=== PATIENT | female | born 1950 | race Caucasian/White ===

== ENCOUNTER 2022-07-31 16:36 | Outpatient (CLI) | payer OTHER, SELFPAY | END 2022-07-31 16:37 | disposition home or self-care (01) | PROVIDERS: PCP Physician Assistant; Visit Provider Family Medicine | DX: R07.89 Other chest pain (principal); R10.13 Epigastric pain | CPT/HCPCS: A0425; A0427 ==

== ENCOUNTER 2022-07-31 17:02 | Emergency (ER) | payer OTHER, SELFPAY ==
[2022-07-31 17:10] VITALS: BP 149/55; PULSE 72; RESP 18; TEMP 36.5; O2SAT 94; BMI 28.4
--- NOTE | 2022-07-31 17:12 | CRLHL7_ITS ---
For Patients: As a result of the Cures Act, medical imaging exams and procedure reports are released immediately into your electronic medical record. You may view this report before your referring provider. If you have questions, please contact your health care provider. INDICATION: Chest pain. TECHNIQUE: Chest 1 view. COMPARISON: None. FINDINGS: No focal consolidation, pleural effusion, or pneumothorax. Left basilar atelectasis. Normal heart size and pulmonary vascularity. Mild elevation of the right hemidiaphragm. Left convex thoracic curve. Degenerative changes of the spine. IMPRESSION: No acute cardiopulmonary findings. Dictated by Tatianna Zambrano MD @ 07/31/2022 6:15:06 PM (Electronically Signed)
--- NOTE | 2022-07-31 17:13 | ED.GENADULT ---
HPI - General Adult General Time Seen by Provider: 17:13 Date Seen: 07/31/22 Chief complaint: Chest Pain Stated complaint: CHEST PAIN Time Seen by Provider: 07/31/22 17:05 Source: patient Mode of arrival: EMS Limitations: no limitations History of Present Illness HPI narrative: The patient is a 72-year-old female who about a month ago had an acute [place] in [place]. She is put on Brilinta and she recovered nicely. She is scheduled to see a lead software test engineer about doing an angiogram on the of this month. She reports that today she was eating and swallowing something and had a vomit and felt like she choked a little bit then vomited several times and retched several times had some chest had some left lower abdominal left upper abdominal and left lower chest wall discomfort and then called an ambulance as she is concerned about her heart. Her symptoms have resolved now. No nausea, vomiting no diaphoresis, no neck or arm pain. Related Data Home Medications Medication Instructions Recorded Confirmed acetaminophen 500 mg tablet (Pain 1,000 mg PO Q6H PRN 07/31/22 07/31/22 Relief (acetaminophen)) clobetasol 0.05 % topical ointment 1 applic topical BID 07/31/22 07/31/22 insulin aspar prot-insulin aspart 39 unit subcut BID 07/31/22 07/31/22 100 unit/mL (70-30) subcutaneous pen (Novolog Mix 70-30FlexPen U-100) lisinopril 10 mg tablet 10 mg PO DAILY 07/31/22 07/31/22 metoprolol succinate 25 mg 25 mg PO DAILY 07/31/22 07/31/22 tablet,extended release 24 hr nitroglycerin 0.4 mg sublingual 0.4 mg sublingual Q5M PRN 07/31/22 07/31/22 tablet polyethylene glycol 3350 17 gram 17 g PO DAILY 07/31/22 07/31/22 oral powder packet (Miralax) rosuvastatin 20 mg tablet 10 mg PO DAILY 07/31/22 07/31/22 ticagrelor 90 mg tablet (Brilinta) 90 mg PO Q12H 07/31/22 07/31/22 Allergies Allergy/AdvReac Type Severity Reaction Status Date / Time Penicillins Allergy Verified 07/31/22 17:15 Review of Systems Status of ROS: Reports: 10 or more systems reviewed and unremarkable except as noted in History and below PFSH PFS Social History Smoking Status: Never smoker Do you use any of these nicotine containing products: None How often do you have a drink containing alcohol: monthly or less How many standard drinks containing alcohol do you have on a typical day: 1 or 2 How often do you have six or more drinks on one occasion: Never AUDIT-C Alcohol total score: 1 Non-prescribed substance use: denies use Exam Narrative: Exam Narrative: Objective: Patient is alert orient x3 Vital signs are being obtained HEENT is unremarkable facial asymmetry Neck is supple Chest is clear Heart rate and rhythm regular with occasional ectopic beat 2/6 systolic ejection murmur Abdominal exam shows some mild left upper abdominal tenderness, lower chest wall tenderness to palpation, no real crepitus. Extremities are no edema Neurologic nonfocal Skin is warm and dry Const: Vital Signs, click to edit/add: Vital Signs - 24 hr 07/31/22 17:10 07/31/22 19:00 07/31/22 18:30 Temperature 97.7 F Pulse Rate [Right Pulse Oximeter] 72 66 66 Respiratory Rate 18 16 16 Blood Pressure [Le ft Upper Arm] 149/55 H 143/55 H 144/81 H Pulse Oximetry 94 97 97 Oxygen Delivery Me thod Room Air Room Air Room Air 07/31/22 18:00 07/31/22 17:30 Temperature Pulse Rate [Right Pulse Oximeter] 66 66 Respiratory Rate 16 16 Blood Pressure [Le ft Upper Arm] 127/52 L 128/66 Pulse Oximetry 97 97 Oxygen Delivery Me thod Room Air Room Air Course Vital Signs Vital signs: Initial Vital Signs Temperature 97.7 F 07/31/22 17:10 Temperature Source Temporal Artery Scan 07/31/22 17:10 Pulse Rate 72 07/31/22 17:10 Respiratory Rate 18 07/31/22 17:10 Blood Pressure 149/55 H 07/31/22 17:10 Blood Pressure Mean 86 07/31/22 17:10 Blood Pressure Position Supine 07/31/22 17:10 Pulse Oximetry 94 07/31/22 17:10 Oxygen Delivery Method 07/31/22 17:10 Vital Signs Temperature 97.7 F 07/31/22 17:10 Pulse Rate 72 07/31/22 17:10 Respiratory Rate 18 07/31/22 17:10 Blood Pressure 149/55 H 07/31/22 17:10 Pulse Oximetry 94 07/31/22 17:10 Oxygen Delivery Method 07/31/22 17:10 Temperature 97.7 F 07/31/22 17:10 Pulse Rate 66 07/31/22 19:00 Respiratory Rate 16 07/31/22 19:00 Blood Pressure 143/55 H 07/31/22 19:00 Pulse Oximetry 97 07/31/22 19:00 Oxygen Delivery Method 07/31/22 19:00 Medical Decision Making MDM Narrative Medical decision making narrative: The patient had a cardiac event about a month ago, today had some swallowing difficulty, subsequent retching. Describes more upper abdominal pain on the left than chest pain I suspect that she may have more of a GI component to her process than cardiac, but I think doing cardiac monitoring, EKGs, serial troponin to be reasonable. Will get a chest x-ray, labs electrolytes. She has been given aspirin via ambulance. She is given a nitro as well, and she did have pain at house and then after retching felt better. She is fairly asymptomatic at this time. Addendum: Patient's 2nd EKG looks exactly like the 1st 1 with normal sinus rhythm some sinus arrhythmia no acute ST T changes, limited R-wave progression anteriorly. The patient's symptoms resolved completely. In discussing this further with her she felt that she was having some difficulty with eating and swallowed something to quickly that did not agree with her, and then she had some retching choking and feels better now. We are running a 2nd troponin initial 1 was normal. If the 2nd 1 is normal as well she will be discharged home, did continue her same medications, follow up with primary care in the next 2 days, follow up with Cardiology as planned. If she has problems or concerns any recurrence of symptoms or issues she should return to the ED. she was comfortable this plan Lab Data Labs: Lab Results 07/31/22 07/31/22 07/31/22 Range/Units 17:42 17:42 17:42 WBC 9.80 (4.50-11.00) K/uL RBC 4.44 (4.00-5.20) m/uL Hgb 11.7 L (12.0-16.0) gm/dL Hct 37.3 (33.0-51.0) % MCV 84 (80-100) fL MCH 26 (26-34) pg MCHC 31 L (32-36) gm/dL RDW Coeff of Jose Francisco 14.0 (11.5-15.5) % Plt Count 316 (140-440) K/uL Neut % (Auto) 66.6 (42.0-72.0) % Lymph % (Auto) 25.5 (20-44) % [place] % (Auto) 6.4 (0.0-11.0) % Eos % (Auto) 1.1 (0.0-7.0) % Baso % (Auto) 0.3 (0.0-3.0) % Neut # (Auto) 6.52 (1.7-7.0) K/uL Lymph # (Auto) 2.50 (0.90-2.90) K/uL [place] # (Auto) 0.60 (0.00-0.90) K/UL Eos # (Auto) 0.11 (0.00-0.50) K/uL Baso # (Auto) 0.03 (0.00-0.30) K/uL Abs Immat Gran (auto) 0.01 (0.00-0.30) K/uL INR 1.05 (0.91-1.10) Sodium 140 (135-149) mmol/L Potassium 4.6 (3.6-5.1) mmol/L Chloride 104 (96-114) mmol/L Carbon Dioxide 26 (20-32) mmol/L BUN 17 (7-30) mg/dL Creatinine 0.6 (0.5-1.5) mg/dL Estimated Creat Clear 50.54 Estimated GFR 95 ml/min Glucose 145 H (60-115) mg/dL Calcium 9.3 (8.4-10.6) mg/dL Total Bilirubin 0.4 (0.1-1.5) mg/dL Direct Bilirubin 0.2 (0.0-0.5) mg/dL AST 28 (12-35) U/L ALT 21 (4-35) U/L Alkaline Phosphatase 74 (40-150) U/L Troponin I (0.01-0.04) ng/mL C-Reactive Protein < 0.5 L (0.5-1.0) mg/dL NT-Pro-B Natriuret Pep 509 H (0-125) PG/mL Total Protein 7.4 (6.0-8.3) g/dL Albumin 4.3 (3.3-5.0) g/dL Amylase 105 H (18-89) U/L SARS-CoV-2 Ag (Rapid) (Negative) 07/31/22 07/31/22 Range/Units 17:42 18:00 WBC (4.50-11.00) K/uL RBC (4.00-5.20) m/uL Hgb (12.0-16.0) gm/dL Hct (33.0-51.0) % MCV (80-100) fL MCH (26-34) pg MCHC (32-36) gm/dL RDW Coeff of Jose Francisco (11.5-15.5) % Plt Count (140-440) K/uL Neut % (Auto) (42.0-72.0) % Lymph % (Auto) (20-44) % [place] % (Auto) (0.0-11.0) % Eos % (Auto) (0.0-7.0) % Baso % (Auto) (0.0-3.0) % Neut # (Auto) (1.7-7.0) K/uL Lymph # (Auto) (0.90-2.90) K/uL [place] # (Auto) (0.00-0.90) K/UL Eos # (Auto) (0.00-0.50) K/uL Baso # (Auto) (0.00-0.30) K/uL Abs Immat Gran (auto) (0.00-0.30) K/uL INR (0.91-1.10) Sodium (135-149) mmol/L Potassium (3.6-5.1) mmol/L Chloride (96-114) mmol/L Carbon Dioxide (20-32) mmol/L BUN (7-30) mg/dL Creatinine (0.5-1.5) mg/dL Estimated Creat Clear Estimated GFR ml/min Glucose (60-115) mg/dL Calcium (8.4-10.6) mg/dL Total Bilirubin (0.1-1.5) mg/dL Direct Bilirubin (0.0-0.5) mg/dL AST (12-35) U/L ALT (4-35) U/L Alkaline Phosphatase (40-150) U/L Troponin I < 0.01 L (0.01-0.04) ng/mL C-Reactive Protein (0.5-1.0) mg/dL NT-Pro-B Natriuret Pep (0-125) PG/mL Total Protein (6.0-8.3) g/dL Albumin (3.3-5.0) g/dL Amylase (18-89) U/L SARS-CoV-2 Ag (Rapid) Negative (Negative) Discharge Plan Discharge Clinical Impression: Retching Patient Disposition: Home, Self-Care Condition: Improved Additional Instructions: Continue home medications, update primary care in the next 2 days, cardiology follow-up as indicated, return if problems or concerns. Activity Level: Light activity Discharge Diet: Regular Prescriptions: No Action acetaminophen [Pain Relief (acetaminophen)] 500 mg tablet 1,000 mg PO Q6H PRN Label Comments: TAKE 1 TO 2 TABLETS BY MOUTH EVERY 6 HOURS NEEDED FOR PAIN . DO NOT EXCEED 4000 MG OF ACETAMINOPHEN PER 24 HOURS clobetasol 0.05 % ointment 1 applic TOPICAL BID Label Comments: APPLY OINTMENT TOPICALLY TO AFFECTED AREA TWICE DAILY insulin asp prt-insulin aspart [Novolog Mix 70-30FlexPen U-100] 100 unit/mL (70-30) insulin pen 39 unit SUBCUT BID Label Comments: INJECT 43 UNITS SUBCUTANEOUSLY TWICE DAILY BEFORE MEAL(S) lisinopril 10 mg tablet 10 mg PO DAILY Label Comments: TAKE 1 TABLET BY MOUTH ONCE DAILY metoprolol succinate 25 mg tablet extended release 24 hr 25 mg PO DAILY Label Comments: TAKE 1 TABLET BY MOUTH EVERY DAY nitroglycerin 0.4 mg tablet, sublingual 0.4 mg sublingual Q5M PRN Label Comments: ONE TABLET UNDER TONGUE NEEDED FOR CHEST PAIN EVERY 10 MINUTES. MAX DOSE OF 3 TABLETS polyethylene glycol 3350 [Miralax] 17 gram powder in packet 17 g PO DAILY Label Comments: TAKE 1 PACKET BY MOUTH ONCE DAILY. rosuvastatin 20 mg tablet 10 mg PO DAILY Brilinta 90 mg tablet 90 mg PO Q12H Label Comments: TAKE 1 TABLET BY MOUTH TWICE DAILY AT 8 AM AND 8 PM Stand Alone Forms: [facility] Info Instructions
[2022-07-31 17:30] VITALS: BP 128/66; PULSE 66; RESP 16; O2SAT 97
[2022-07-31 17:48] LABS: Basophils Absolute Auto 0.03 K/uL (0.00-0.30); Basophils Percent Auto 0.3 % (0.0-3.0); Eosinophils Absolute Auto 0.11 K/uL (0.00-0.50); Eosinophils Percent Auto 1.1 % (0.0-7.0); Hematocrit 37.3 % (33.0-51.0); Hemoglobin* 11.7 gm/dL (12.0-16.0); Immature Granulocytes Abs Auto 0.01 K/uL (0.00-0.30); Lymphocytes Percent Auto 25.5 % (20-44); Mean Corpuscular HGB Conc 31 gm/dL (32-36); Mean Corpuscular Hemoglobin 26 pg (26-34); Mean Corpuscular Volume 84 fL (80-100); Monocytes Percent Auto 6.4 % (0.0-11.0); Neutrophils Absolute Auto 6.52 K/uL (1.7-7.0); Neutrophils Percent Auto 66.6 % (42.0-72.0); Platelet Count* 316 K/uL (140-440); Red Blood Count 4.44 m/uL (4.00-5.20)
[2022-07-31 17:52] LABS: Slide Review Reflex No
[2022-07-31] MEDS: 0.9 % SODIUM CHLORIDE 500 ML 500 ML IV (17:55)
[2022-07-31] MEDS: PANTOPRAZOLE SODIUM 40 MG INJ IVP (17:57)
[2022-07-31 18:00] VITALS: BP 127/52; PULSE 66; RESP 16; O2SAT 97
[2022-07-31 18:05] LABS: Chloride* 104 mmol/L (96-114)
[2022-07-31 18:06] LABS: Albumin* 4.3 g/dL (3.3-5.0); Potassium* 4.6 mmol/L (3.6-5.1); Sodium* 140 mmol/L (135-149)
[2022-07-31 18:08] LABS: Amylase* 105 U/L (18-89)
[2022-07-31 18:09] LABS: Alkaline Phosphatase* 74 U/L (40-150); Aspartate Amino Transferase* 28 U/L (12-35); Bilirubin Direct* 0.2 mg/dL (0.0-0.5); Bilirubin Total* 0.4 mg/dL (0.1-1.5); Blood Urea Nitrogen* 17 mg/dL (7-30); Carbon Dioxide* 26 mmol/L (20-32); Creatinine* 0.6 mg/dL (0.5-1.5); Est. Creatinine Clearance* 50.54; Estimated Glomerular Filt Rate 95 ml/min; Total Protein* 7.4 g/dL (6.0-8.3)
[2022-07-31 18:10] LABS: Alanine Aminotransferase* 21 U/L (4-35); Calcium* 9.3 mg/dL (8.4-10.6); Glucose* 145 mg/dL (60-115)
[2022-07-31 18:15] LABS: C Reactive Protein* < 0.5 mg/dL (0.5-1.0)
[2022-07-31 18:17] LABS: NT Pro B Type NatriureticPept* 509 PG/mL (0-125)
[2022-07-31 18:21] LABS: INR 1.05 (0.91-1.10); Prothrombin Time 14.2 Seconds
[2022-07-31 18:22] LABS: Troponin I* < 0.01 ng/mL (0.01-0.04)
[2022-07-31 18:30] VITALS: BP 144/81; PULSE 66; RESP 16; O2SAT 97
[2022-07-31 18:48] LABS: SARS Antigen* Negative (Negative)
[2022-07-31 19:00] VITALS: BP 143/55; PULSE 66; RESP 16; O2SAT 97
[2022-07-31 19:45] LABS: Troponin I* < 0.01 ng/mL (0.01-0.04)
== END 2022-07-31 20:26 | disposition home or self-care (01) ==
PROVIDERS: Emergency Provider Family Medicine; PCP Physician Assistant
DX: R11.10 Vomiting, unspecified (principal)
CPT/HCPCS: 36415; 71045; 80048; 80076; 82150; 83880; 84484; 85025; 85610; 86140; 87426; 87635; 93005; 96374; 99284; 99285; C9113; J7120

== ENCOUNTER 2024-06-25 20:03 | Outpatient (CLI) | payer OTHER, SELFPAY | END 2024-06-25 20:04 | disposition home or self-care (01) | PROVIDERS: PCP Physician Assistant; Visit Provider Physician Assistant | DX: G47.33 Obstructive sleep apnea (adult) (pediatric) (principal); G47.10 Hypersomnia, unspecified | CPT/HCPCS: 95810 ==

== ENCOUNTER 2024-11-13 14:25 | Outpatient (CLI) | payer OTHER, SELFPAY | END 2024-11-13 14:26 | disposition home or self-care (01) | LOC: INJ CL 14:27 | PROVIDERS: PCP Physician Assistant; Visit Provider Family Medicine | DX: M51.26 Other intervertebral disc displacement, lumbar region (principal); M51.369 Other intervertebral disc degeneration, lumbar region without mention of lumbar back pain or lower extremity pain | CPT/HCPCS: 62323; J0702; Q9966 ==

== ENCOUNTER 2025-03-05 09:02 | Outpatient (CLI) | payer OTHER, SELFPAY | END 2025-03-05 09:03 | disposition home or self-care (01) | LOC: INJ CL 09:03 | PROVIDERS: PCP Physician Assistant; Visit Provider Family Medicine | DX: M54.16 Radiculopathy, lumbar region (principal); M48.061 Spinal stenosis, lumbar region without neurogenic claudication; M51.26 Other intervertebral disc displacement, lumbar region; M47.816 Spondylosis without myelopathy or radiculopathy, lumbar region | CPT/HCPCS: 62323; J0702; Q9966 ==

== ENCOUNTER 2025-06-18 08:46 | Day surgery (SDC) | payer OTHER, SELFPAY ==
[2025-06-18] VITALS (34 sets, daily range): BP systolic 88–164; BP diastolic 47–94; PULSE 46–91; RESP 10–20; TEMP 35.5–36.9; O2SAT 2–98; BMI 28.3
[2025-06-18] MEDS: CELECOXIB 200 MG CAPSULE PO (08:56)
[2025-06-18] MEDS: OXYCODONE (CR) 10 MG TAB.ER.12H PO (08:56)
[2025-06-18] MEDS: SODIUM CHLORIDE 0.9 % (FLUSH) 10 ML SYRINGE IVF (09:45)
[2025-06-18] MEDS: LACTATED RINGERS 1000 ML 1,000 ML 100 ML IV ×3 (09:45→15:43)
[2025-06-18] MEDS: MIDAZOLAM HCL 1 MG/ML inj IVP (10:45)
--- NOTE | 2025-06-18 10:54 | SUR.PREOP ---
TIME?OUT:?1045 PT/RN/MDA?VERIFICATION?OF?SURGICAL?SITE,?PROCEDURE,?AND?CONSENT OBTAINED?PRIOR?TO?INVASIVE?PROCEDURE.
--- NOTE | 2025-06-18 10:59 | P.ANES_ITS ---
Anesthesia Charges Start Date/Time Anesthesia Start Date: 06/18/25 Anesthesia Start Time: 12:05 Stop Date/Time Anesthesia Stop Date: 06/18/25 Anesthesia Stop Time: 15:04 Summary Extremes of Age - Over 70 or under 1: MDA Coding CPT Codes CPT Codes: ANESTH HIP ARTHROPLASTY - 23826 ([id number]) P3 - PATIENT W/SEVERE SYS DISEASE, QK - SOLVENT PROCESS EXTRACTOR OPERATOR 2-4 CNCRNT ANES PROC, QX - MEDICAL RESEARCH SCIENTIST SVC W/ MD MED DIRECTION Additional Codes: Summary - Extremes of Age - Over 70 or under 1: MDA ([id number])
--- NOTE | 2025-06-18 10:59 | P.NB_ITS ---
Nerve Block Nerve Block Time Seen by Provider: 10:45 Date Seen: 06/18/25 Type of block requested by surgeon for post-operative analgesia: MADELINE/LFCN Side: right Time out performed: Yes Verification of patient name: Yes Verification of date of : Yes Site marking: site marked Name of person performing procedure: Ubaldo Continuous monitoring Was continuous monitoring of O2 sat, B/P, quality assurance monitor body, recorded every 15 minutes?: Yes Procedure Checklist: sterile prep, needles and gloves Ultrasound guided. Images saved: Yes Medications given in 5ml increments after negative aspiration: Ropivicaine %: 0.5 mL: 30 Needle gauge: 20 Precedex (mcg): 25 Patient tolerated procedure well: Yes Additional comments: Needle noted below psoas tendon needle noted adjacent to LFCN Block Charges Block Charge (with Pro Fee): Other Periph Nerve Block Use of Ultrasound Machine for Block: Yes- US Guidance/pain block
--- NOTE | 2025-06-18 10:59 | W.ANESCHARGE ---
Anesthesia Charges Start Date/Time Anesthesia Start Date: 06/18/25 Anesthesia Start Time: 12:05 Stop Date/Time Anesthesia Stop Date: 06/18/25 Anesthesia Stop Time: 15:04 Summary Extremes of Age - Over 70 or under 1: MDA Coding CPT Codes CPT Codes: ANESTH HIP ARTHROPLASTY - 85542 ([id number]) P3 - PATIENT W/SEVERE SYS DISEASE, QK - VETERANS REHABILITATION COUNSELOR 2-4 CNCRNT ANES PROC, QX - OVEN TECHNICIAN SVC W/ MD MED DIRECTION Additional Codes: Summary - Extremes of Age - Over 70 or under 1: MDA ([id number])
--- NOTE | 2025-06-18 11:00 | CRLHL7_ITS ---
For Patients: As a result of the Cures Act, medical imaging exams and procedure reports are released immediately into your electronic medical record. You may view this report before your referring provider. If you have questions, please contact your health care provider. Indication: Right total hip arthroplasty. Technique: Two fluoroscopic views of the right hip. Comparison: None. Findings/Impression : Postsurgical changes of right total hip arthroplasty without evidence of hardware loosening or other intraoperative complication. Dictated by Sudarshan Sebastian MD @ 06/20/2025 7:18:47 PM (Electronically Signed)
[2025-06-18] MEDS: TRANEXAMIC ACID 100 MG/ML INJ 1000 MG IV (12:19)
--- NOTE | 2025-06-18 14:15 | CRLHL7_ITS ---
For Patients: As a result of the Cures Act, medical imaging exams and procedure reports are released immediately into your electronic medical record. You may view this report before your referring provider. If you have questions, please contact your health care provider. Indication: Follow-up total hip arthroplasty. Technique: Multiple radiographic views of the pelvis and right hip. Comparison: None. Findings: Postsurgical changes of right total hip arthroplasty without evidence of hardware loosening or other complication. No other acute osseous abnormalities elsewhere. Left hip arthrosis. Impression: 1. Status post right total hip arthroplasty without complication. Dictated by Sudarshan Sebastian MD @ 06/20/2025 7:20:53 PM (Electronically Signed)
--- NOTE | 2025-06-18 14:33 | P.ORPRC_ITS ---
Procedure Note Date of procedure: 06/18/25 Procedure: PREOPERATIVE DIAGNOSIS: Right hip osteoarthritis POSTOPERATIVE DIAGNOSIS: Right hip osteoarthritis NAME OF OPERATION: Right total hip arthroplasty SURGEON: Manjit Turner MD RAILROAD CROSSING PROTECTION MAINTAINER: Lisa Miller PA-C, JD Brantley IMPLANTS: 1. [employer] Wesley # 52 sector ingrowth cup 2. 36 x 52 +4 neutral polyethylene 3. Actis # 7 standard collared ingrowth stem 4. 36 + 5 ceramic femoral head ANESTHESIA: General ESTIMATED BLOOD LOSS: 350 cc COMPLICATIONS: None SPECIMENS: None DRAINS: None PREOPERATIVE ANTIBIOTICS: Ancef 2 grams INDICATIONS: The patient is a 75-year-old with a longstanding history of se lisbet, unrelenting right hip pain secondary to end-stage right hip osteoarthritis. Despite appropriate nonoperative management, including activity modification, use of an assist device, anti-inflammatories, [id number] pain medication, physical therapy and injections, they continue to have pain and disability. Operative intervention was offered. The risks, benefits and expected outcomes were discussed in detail. These included but were not limited to: Infection, bleeding, injury to blood vessel or nerve, venous thromboembolism. All questions were answered to their satisfaction. Use of an intellectual property legal assistant was necessary throughout the case for patient positioning and safety, soft tissue retraction and closure. PROCEDURE: The patient was placed supine on the Nelson table. General anesthesia was administered. The intellectual property legal assistant made sure the patient was properly positioned. The right hip was prepped and draped in the usual sterile fashion. The image intensifier was brought in for a perfect AP pelvis and a perfect double tear drop AP view of each hip which were used for intraoperative templating with our fluoroscopic guide. A bikini incision was made just distal to the hip flexion crease. The intellectual property legal assistant retracted the soft tissues to protect them. Subcutaneous dissection was taken with electrocautery to the superficial fascia. The fascia was divided in line with the incision. Blunt dissection was carried medially to the tensor fascia alana and sartorius interval. Deep dissection was carried with electrocautery. The circumflex vessels were cauterized and divided. The capsule was exposed and then divided in a T-fashion, tagged with #1 FiberWire sutures. Retractors were placed in the joint, held by the intellectual property legal assistant. The corkscrew was placed in the femoral head. The neck cut was made in the subcapital region. We made a second neck cut more distal. The napkin ring of bone was removed. The femoral head was removed intact. Acetabular retractors were placed, held by the intellectual property legal assistant. The labrum was sharply debrided. The capsule was released. The 43 mm reamer was used to the true medial wall. We then enlarged in 2 mm increments using the image intensifier for our reamer placement. We impacted the cup which had excellent purchase. We placed the polyethylene. Attention was then turned to the proximal femur. The limb was placed in 140 degrees of external rotation, maximum extension and adduction. A significant amount of time was spent releasing the capsule to allow us to deliver the femur into the wound and complete the femoral side safely. Retractors were held by the intellectual property legal assistant throughout the femoral preparation. The crap game box person and canal finder were used. Broaches were used to a stable size. The calcar reamer was used. Trial components were placed. The hip was reduced and was found to be stable with appropriate soft tissue tension. Length and offset had been nicely restored using the image intensifier and our fluoroscopic guide. Trial components were removed. The stem was impacted. We placed the femoral head. Again, the hip was reduced and was found to be stable with appropriate soft tissue tension. Length and offset had been nicely restored. The intellectual property legal assistant did a three minute dilute Betadine solution soak. The intellectual property legal assistant irrigated the wound with 3 liters of normal saline via pulse lavage. The intellectual property legal assistant repaired the anterior capsule with a #1 Vicryl and our previously placed Ethibond sutures. The intellectual property legal assistant closed the fascia over the tensor fascia alana with a #1 PDO Stratafix, subcutaneous tissues with 2-0 Vicryl, skin with a running 3-0 Stratafix and glue. A dry dressing was applied by the intellectual property legal assistant. Sponge and needle counts were correct x 2. The patient tolerated the procedure well; there were no apparent complications. They were awakened and extubated in the operating room, sent to the Post-Anesthesia Care Unit in satisfactory condition. PLAN: 1. The patient will be mobilized with physical therapy, weight-bearing as tolerates 2. Xarelto x 5 days then aspirin x 30 days will be used for DVT prophylaxis 3. The patient will be discharged once medically appropriate
--- NOTE | 2025-06-18 15:17 | P.ANES_ITS ---
Anesthesia Charges Start Date/Time Anesthesia Start Date: 06/18/25 Anesthesia Start Time: 12:05 Stop Date/Time Anesthesia Stop Date: 06/18/25 Anesthesia Stop Time: 15:04 Coding CPT Codes CPT Codes: ANESTH HIP ARTHROPLASTY - 70455 ([id number]) P3 - PATIENT W/SEVERE SYS DISEASE, QK - SOCK KNITTER 2-4 CNCRNT ANES PROC, QX - PLC TECHNICIAN SVC W/ MD MED DIRECTION
--- NOTE | 2025-06-18 15:17 | W.ANESCHARGE ---
Anesthesia Charges Start Date/Time Anesthesia Start Date: 06/18/25 Anesthesia Start Time: 12:05 Stop Date/Time Anesthesia Stop Date: 06/18/25 Anesthesia Stop Time: 15:04 Coding CPT Codes CPT Codes: ANESTH HIP ARTHROPLASTY - 80060 ([id number]) P3 - PATIENT W/SEVERE SYS DISEASE, QK - RADIOLOGICAL HEALTH SPECIALIST 2-4 CNCRNT ANES PROC, QX - STRATEGIC ACCOUNTS MANAGER SVC W/ MD MED DIRECTION
--- NOTE | 2025-06-18 15:44 | PM.IMCN1 ---
Date of Consult Consult date: 06/18/25 Primary Care Provider: Usha Benedict PA-C Consult Narrative Narrative: Ana Mazariegos is a 75 year old female with past medical history of hypertension, hyperlipidemia, CAD, diabetes who presents for an elective right hip arthroplasty. Patient has history of a heart attack back in June 2022 and she got a stent at that time. She is currently on aspirin daily, I am going to resume aspirin today and she can take it along with Xarelto because she will need her antiplatelet medication to avoid clotting of her stent. On insulin NovoLog Mix 70-30, 22 units b.i.d. plus metformin 2000 mg daily. Review of Systems Status of ROS: Reports: 6 or more systems reviewed and unremarkable except as noted in History and below [facility] Medical History (Updated 06/18/25 @ 18:34 by Ana Wasserman MD) CAD involving [place] coronary artery without angina pectoris ?I25.10 - Atherosclerotic heart disease of [place] coronary artery without angina pectoris (ICD-10) Cervical stenosis of spinal canal ?M48.02 - Spinal stenosis, cervical region (ICD-10) NSTEMI (non-ST elevated myocardial infarction) ?I21.4 - Non-ST elevation (NSTEMI) myocardial infarction (ICD-10) DDD (degenerative disc disease) HTN (hypertension) ?I10 - Essential (primary) hypertension (ICD-10) Myalgia and myositis (10/24/06) Anesthesia complication ?T88.59XA - Other complications of anesthesia, initial encounter (ICD-10) Diabetes (11/28/03) ?E11.9 - Type 2 diabetes mellitus without complications (ICD-10) Hyperlipidemia (10/24/06) ?E78.5 - Hyperlipidemia, unspecified (ICD-10) 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5 - Presence of coronary angioplasty implant and graft (ICD-10) Social History What is your current living situation?: I presently have a place to live Problems where you live: pests, such as bugs, ants, or mice and no known problems Problems where you live details: ants and spiders In the past 12 months, utilities in danger of being shut off: no In past 12 months, lack of transportation kept you from medical appts, meetings, work, or getting things needed for daily living: no In the past 12 mos, have been you worried that your food would run out before you had money to buy more?: never true In the past 12 mos, the food you bought just didn't last and you didn't have money to buy more?: never true Highest level of school completed/degree received: Associate degree: occupational, technical, vocational program Smoking Status: Never smoker Do you use any of these nicotine containing products: None Second hand tobacco smoke exposure: No How often do you have a drink containing alcohol: monthly or less Alcohol type: wine How many standard drinks containing alcohol do you have on a typical day: 1 or 2 How often do you have six or more drinks on one occasion: Never AUDIT-C Alcohol total score: 1 Non-prescribed substance use: denies use Caffeine: Yes How often does anyone, including family, friends and others, physically hurt you: never How often does anyone, including family, friends and others, insult or talk down to you: never How often does anyone, including family, friends and others, threaten you with harm: never How often does anyone, including family, friends and others, scream or curse at you: never service: No Health Related Social Needs: Inadequate housing (Z59.1) Meds Home Medications and Allergies Home Medications ?Medication ?Instructions ?Recorded ?Confirmed ?Type clobetasol 0.05 % topical ointment 1 applic topical BID PRN 07/31/22 06/18/25 History lisinopril 10 mg tablet 10 mg PO DAILY 07/31/22 06/18/25 History metoprolol succinate 25 mg 25 mg PO DAILY 07/31/22 06/18/25 History tablet,extended release 24 hr nitroglycerin 0.4 mg sublingual 0.4 mg sublingual Q5M PRN 07/31/22 06/18/25 History tablet polyethylene glycol 3350 17 gram 17 g PO DAILY 07/31/22 06/18/25 History oral powder packet (Miralax) metronidazole 0.75 % topical gel 1 applic topical BID PRN 10/06/23 06/18/25 History aspirin 81 mg tablet 81 mg PO DAILY 04/29/25 06/18/25 History Held on 06/18/25. Instructions: Resume on 07/24/25. pregabalin 75 mg capsule 75 mg PO BID 04/29/25 06/18/25 History ferrous sulfate 325 mg (65 mg 325 mg PO DAILY 06/10/25 06/18/25 History iron) tablet hydrocodone 5 mg-acetaminophen 325 0.5 - 1 tab PO BID PRN 06/10/25 06/18/25 History mg tablet insulin aspar prot-insulin aspart 22 unit subcut BID 06/10/25 06/18/25 History 100 unit/mL (70-30) subcutaneous pen (Novolog Mix 70-30FlexPen U-100) magnesium oxide 500 mg PO DAILY 06/10/25 06/18/25 History metformin 500 mg tablet,extended 2,000 mg PO QPM 06/10/25 06/18/25 History release 24 hr methocarbamol 500 mg tablet 500 mg PO Q6H PRN 06/10/25 06/18/25 History naproxen sodium 220 mg capsule 220 mg PO Q8H PRN 06/10/25 06/18/25 History (Aleve) Held on 06/18/25. Instructions: Resume on 06/24/25. rosuvastatin 20 mg tablet 20 mg PO HS 06/10/25 06/18/25 History acetaminophen 650 mg 650 mg PO Q8H PRN 06/18/25 06/18/25 History tablet,extended release cyanocobalamin (vitamin B-12) 1,000 mcg PO DAILY 06/18/25 06/18/25 History 1,000 mcg tablet Allergies Allergy/AdvReac Type Severity Reaction Status Date / Time Penicillins Allergy Verified 06/18/25 09:50 cephalexin (From Keflex) AdvReac Unknown Verified 06/18/25 09:50 clindamycin AdvReac Unknown Verified 06/18/25 09:50 tizanidine AdvReac Unknown Verified 06/18/25 09:50 Exam Narrative: Exam Narrative: Physical exam GENERAL: Comfortable, no acute distress. HEAD AND NECK: Atraumatic, normocephalic CARDIOVASCULAR: RRR. Normal S1, S2. No murmurs. RESPIRATORY: Clear to auscultation B/L. Good air entry B/L. No wheezes or rhonchi. NEUROLOGY: Alert, awake, oriented X 3. Normal speech. PSYCH: Normal mood, normal affect. Const: Vital Signs, click to edit/add: Vital Signs - 24 hr 06/18/25 09:45 06/18/25 10:45 06/18/25 10:50 Temperature 98.4 F Pulse Rate 79 75 71 Respiratory Rate 16 16 16 Blood Pressure 150/59 H 160/68 H 139/72 Pulse Oximetry 97 96 94 Oxygen Delivery Me thod Room Air Nasal Cannula Nasal Cannula Oxygen Flow Rate 2 2 06/18/25 11:00 06/18/25 14:59 06/18/25 15:05 Temperature 97.5 F L Pulse Rate 56 L 91 86 Respiratory Rate 16 18 16 Blood Pressure 121/50 L 164/63 H 142/63 H Pulse Oximetry 96 2 L 93 Oxygen Delivery Me thod Nasal Cannula Room Air Oxygen Flow Rate 2 06/18/25 15:10 06/18/25 15:15 06/18/25 15:20 Temperature Pulse Rate 68 64 63 Respiratory Rate 16 16 16 Blood Pressure 129/73 108/50 L 115/50 L Pulse Oximetry 91 93 96 Oxygen Delivery Me thod Oxygen Flow Rate 06/18/25 15:25 06/18/25 15:30 06/18/25 15:35 Temperature Pulse Rate 62 58 L 55 L Respiratory Rate 16 16 16 Blood Pressure 88/47 L 96/63 110/94 H Pulse Oximetry 97 96 97 Oxygen Delivery Me thod Oxygen Flow Rate Assessment and Plan Assessment and plan (1) Status post right hip replacement: Problem comment: Performed on June 18, 2025 Status: Acute (2) NSTEMI (non-ST elevated myocardial infarction): Problem comment: Patient has history of a heart attack back in June 2022 and she got a stent at that time. She is currently on aspirin daily, I am going to resume aspirin today and she can take it along with Xarelto because she will need her antiplatelet medication to avoid clotting of her stent. Status: Acute (3) CAD involving [place] coronary artery without angina pectoris: Problem comment: History of non-STEMI Patient is on aspirin beta-alexander and a statin Patient has history of a heart attack back in June 2022 and she got a stent at that time. She is currently on aspirin daily, I am going to resume aspirin today and she can take it along with Xarelto because she will need her antiplatelet medication to avoid clotting of her stent. Status: Acute (4) Diabetes: Problem comment: On insulin NovoLog Mix 70-30, 22 units b.i.d. plus metformin 2000 mg daily at home. Will give patient 10-20 units of Lantus BID during her hospital stay. Start insulin sliding scale protocol. Status: Acute (5) HTN (hypertension): Status: Acute (6) Greater trochanteric bursitis of left hip: Status: Acute (7) Hyperlipidemia: Status: Acute (8) Osteoarthritis of right hip: Status: Acute
[2025-06-18] MEDS: CEFAZOLIN 2 GM in 0.9 % SODIUM CHLORIDE Mini-bag 100 ML IVPB (18:29)
[2025-06-18] MEDS: ASPIRIN 81 MG TABLET EC PO (18:51)
[2025-06-18] MEDS: SENNOSIDES 1 TAB TABLET 2 TAB PO (21:38)
[2025-06-18] MEDS: ROSUVASTATIN CALCIUM 10 MG TABLET 20 MG PO (21:38)
[2025-06-18] MEDS: ACETAMINOPHEN 500 MG TABLET 1000 MG PO (23:07)
[2025-06-18] MEDS: PREGABALIN 75 MG CAPSULE PO (23:09)
[2025-06-19 01:49] VITALS: BP 171/65; PULSE 65; RESP 18; TEMP 36.5; O2SAT 99
[2025-06-19] MEDS: CEFAZOLIN 2 GM in 0.9 % SODIUM CHLORIDE Mini-bag 100 ML IVPB (03:23)
[2025-06-19] MEDS: ACETAMINOPHEN 500 MG TABLET 1000 MG PO ×2 (05:21→10:02)
[2025-06-19 06:20] LABS: Hematocrit 31.8 % (33.0-51.0); Hemoglobin* 10.1 gm/dL (12.0-16.0); Mean Corpuscular HGB Conc 32 gm/dL (32-36); Mean Corpuscular Hemoglobin 26 pg (26-34); Mean Corpuscular Volume 83 fL (80-100); Red Blood Count 3.82 m/uL (4.00-5.20); White Blood Count* 12.14 K/uL (4.50-11.00)
[2025-06-19 06:22] LABS: Slide Review Reflex No
[2025-06-19 06:31] LABS: Chloride* 102 mmol/L (96-114); Sodium* 134 mmol/L (135-149)
[2025-06-19 06:32] LABS: Potassium* 4.0 mmol/L (3.6-5.1)
[2025-06-19 06:34] LABS: Blood Urea Nitrogen* 18 mg/dL (7-30); Creatinine* 0.6 mg/dL (0.5-1.5); Est. Creatinine Clearance* 46.54; Estimated Glomerular Filt Rate 93 ml/min
[2025-06-19 06:35] LABS: Anion Gap 7 mEq/L (7-15); Calcium* 9.2 mg/dL (8.4-10.6); Carbon Dioxide* 25 mmol/L (20-32); Glucose* 202 mg/dL (60-115)
[2025-06-19 07:00] VITALS: BP 133/55; PULSE 81; RESP 16; TEMP 36.7; O2SAT 96
--- NOTE | 2025-06-19 07:02 | PC.NURSE ---
[id number]: Patient with high anxiety at beginning of shift. Anxiety resolved with breathing techniques and reassurance. Dressing to R. hip C/D/I. A1/walker/GB. Tolerates well. Pain managed with active ice, Tylenol, and PRN Oxycodone. Home alone. Denies N/V. Tolerates regular diet.
--- NOTE | 2025-06-19 08:38 | PM.ORPN ---
Subjective Subjective Time Seen by Provider: 07:05 Date Seen: 06/19/25 Principal diagnosis: Status post right hip replacement. Interval history: Ana is comfortable. She will discharge to home today. Ortho Exam Narrative Exam Narrative: Alert and oriented x3. Patient is in no acute distress. Converses without labored breathing. Hearing is grossly intact. Ambulates with a walker. Examination of the right hip shows ecchymosis inferior to the dressing. Dressing is intact. No erythema or warmth or sign of infection. Mild edema. She is easily able to flex her hip in bed. She is easily able to swing her leg over the side of the bed. She appears strong. Bilateral calves are soft and nontender. No pretibial edema. CMS intact right lower extremity. Const Vital Signs, click to edit/add: Vital Signs - 24 hr 06/18/25 09:45 06/18/25 10:45 06/18/25 10:50 Temperature 98.4 F Pulse Rate 79 75 71 Pulse Rate [Right Pulse Oximeter] Respiratory Rate 16 16 16 Blood Pressure 150/59 H 160/68 H 139/72 Blood Pressure [Left Arm] Pulse Oximetry 97 96 94 Oxygen Delivery Method Room Air Nasal Cannula Nasal Cannula Oxygen Flow Rate 2 2 06/18/25 11:00 06/18/25 14:59 06/18/25 15:05 Temperature 97.5 F L Pulse Rate 56 L 91 86 Pulse Rate [Right Pulse Oximeter] Respiratory Rate 16 18 16 Blood Pressure 121/50 L 164/63 H 142/63 H Blood Pressure [Left Arm] Pulse Oximetry 96 2 L 93 Oxygen Delivery Method Nasal Cannula Room Air Oxygen Flow Rate 2 06/18/25 15:10 06/18/25 15:15 06/18/25 15:20 Temperature Pulse Rate 68 64 63 Pulse Rate [Right Pulse Oximeter] Respiratory Rate 16 16 16 Blood Pressure 129/73 108/50 L 115/50 L Blood Pressure [Left Arm] Pulse Oximetry 91 93 96 Oxygen Delivery Method Oxygen Flow Rate 06/18/25 15:25 06/18/25 15:30 06/18/25 15:35 Temperature Pulse Rate 62 58 L 55 L Pulse Rate [Right Pulse Oximeter] Respiratory Rate 16 16 16 Blood Pressure 88/47 L 96/63 110/94 H Blood Pressure [Left Arm] Pulse Oximetry 97 96 97 Oxygen Delivery Method Oxygen Flow Rate 06/18/25 15:40 06/18/25 15:45 06/18/25 15:50 Temperature Pulse Rate 57 L 55 L 51 L Pulse Rate [Right Pulse Oximeter] Respiratory Rate 16 18 16 Blood Pressure 122/51 L 126/55 L 134/54 L Blood Pressure [Left Arm] Pulse Oximetry 98 98 96 Oxygen Delivery Method Oxygen Flow Rate 06/18/25 15:55 06/18/25 16:00 06/18/25 16:05 Temperature 98.4 F Pulse Rate 46 L 51 L 52 L Pulse Rate [Right Pulse Oximeter] Respiratory Rate 16 16 16 Blood Pressure 130/52 L Blood Pressure [Left Arm] Pulse Oximetry 97 97 96 Oxygen Delivery Method Room Air Oxygen Flow Rate 06/18/25 16:10 06/18/25 16:15 06/18/25 16:20 Temperature Pulse Rate 51 L 51 L 51 L Pulse Rate [Right Pulse Oximeter] Respiratory Rate 16 17 16 Blood Pressure Blood Pressure [Left Arm] Pulse Oximetry 97 96 95 Oxygen Delivery Method Oxygen Flow Rate 06/18/25 16:25 06/18/25 16:30 06/18/25 16:45 Temperature 96 F L 97 F L Pulse Rate 48 L Pulse Rate [Right Pulse Oximeter] 52 L 47 L Respiratory Rate 18 10 L 12 Blood Pressure Blood Pressure [Left Arm] 136/62 150/62 H Pulse Oximetry 95 96 91 Oxygen Delivery Method Room Air Room Air Oxygen Flow Rate 06/18/25 17:00 06/18/25 17:15 06/18/25 17:30 Temperature 97.2 F L 96.7 F L Pulse Rate Pulse Rate [Right Pulse Oximeter] 61 53 L 49 L Respiratory Rate 14 14 12 Blood Pressure Blood Pressure [Left Arm] 138/59 L 139/57 L 140/60 H Pulse Oximetry 92 96 96 Oxygen Delivery Method Nasal Cannula Nasal Cannula Nasal Cannula Oxygen Flow Rate 1 1 1 06/18/25 18:00 06/18/25 18:30 06/18/25 19:30 Temperature 96.1 F L 97.4 F L Pulse Rate Pulse Rate [Right Pulse Oximeter] 51 L 57 L 60 Respiratory Rate 12 12 16 Blood Pressure Blood Pressure [Left Arm] 142/65 H 157/71 H 153/64 H Pulse Oximetry 96 95 93 Oxygen Delivery Method Nasal Cannula Room Air Room Air Oxygen Flow Rate 1 06/18/25 20:30 06/18/25 21:30 06/18/25 22:30 Temperature 96.1 F L 97.5 F L Pulse Rate Pulse Rate [Right Pulse Oximeter] 63 72 62 Respiratory Rate 16 20 18 Blood Pressure Blood Pressure [Left Arm] 145/65 H 113/68 145/55 H Pulse Oximetry 98 95 98 Oxygen Delivery Method Room Air Room Air Room Air Oxygen Flow Rate 06/18/25 23:00 06/19/25 01:49 Temperature 97.7 F Pulse Rate Pulse Rate [Right Pulse Oximeter] 65 Respiratory Rate 16 18 Blood Pressure Blood Pressure [Left Arm] 171/65 H Pulse Oximetry 95 99 Oxygen Delivery Method Room Air Room Air Oxygen Flow Rate 0 Assessment and Plan Assessment and plan (1) Status post right hip replacement: Problem details: Performed on June 18, 2025 Status: Acute Assessment and Plan: Plan for discharge is today, and when they meets discharge criteria. DVT prophylaxis upon discharge includes Xarelto 10mg daily for a total of 5 days with aspirin 81 mg q.day for 5 days, then Aspirin 81mg twice daily for 30 days, then her usual dose of aspirin 81 mg daily thereafter. Remove dressing 1 week. Observe wound and phone Orthopedics with any questions or concerns Use Ice on operative hip unrestricted. Return to clinic in 7-10 days for a wound check Return to clinic in 6 weeks with surgeon Minimize narcotic use. Wean off and discontinue soon as possible. Activities as tolerated. No strenuous activity. Attend outpt PT She states she does not have hydrocodone/acetaminophen at home. She has in taking oxycodone in hospital. Oxycodone has been sent to her pharmacy. Xarelto quantity 4 tablets has been sent to her pharmacy. She has senna and MiraLax.
[2025-06-19] MEDS: INSULIN ASPART 100 UNIT/ML SUBCUT (08:41)
[2025-06-19] MEDS: ASPIRIN 81 MG TABLET EC PO (10:03)
[2025-06-19] MEDS: METOPROLOL SUCCINATE (XL) 25 MG TAB PO (10:03)
[2025-06-19] MEDS: SENNOSIDES 1 TAB TABLET 2 TAB PO (10:03)
[2025-06-19] MEDS: RIVAROXABAN 10 MG TABLET PO (10:04)
[2025-06-19] MEDS: PREGABALIN 75 MG CAPSULE PO (10:10)
--- NOTE | 2025-06-19 12:00 | PC.SOCIAL ---
Discharge planning: harvest worker fruit met with pt and her friend today before discharge. Pt feels comfortable discharging home today. Pt's neighbor plans to check on her daily. Pt's daughter, who lives in [place], will also be coming this weekend to check on her. Pt has a two story townhouse that she lives in and will be staying on the first level, which also has a half bathroom, until she feels confident doing the stairs. Pt has outpatient PT scheduled to start on 06/27/25 and will do her home exercises in the meantime. Pt is aware of how to get a hold of the social services specialist department if she has any questions and/or concerns. Social work to follow-up as needed.
--- NOTE | 2025-06-19 15:02 | PC.NURSE ---
Arrived to find the patient alert and oriented and vitally stable. Their right hip had their surgical dressing in place clean dry and intact. The skin underneath and surrounding appeared reddened and swollen. A cold pack was then applied and the patient educated on the use of cold to bring down swelling. No other concerns found on assessment. CMS remained intact through their stay. DC was delayed by need to order medications from a new pharmacy. They left in a stable state of health.
== END 2025-06-19 12:00 | disposition home or self-care (01) ==
LOC: OR 08:51 → MEDSURG 08:52
PROVIDERS: Student in an Organized Health Care Education/Training Program; PCP Physician Assistant; Visit Provider Orthopaedic Surgery
PROC: (CPT 27130; principal; 2025-06-18 11:00)
DX: M16.11 Unilateral primary osteoarthritis, right hip (principal); G89.18 Other acute postprocedural pain; E11.9 Type 2 diabetes mellitus without complications; Z59.19 Other inadequate housing; Z79.84 Long term (current) use of oral hypoglycemic drugs; Z79.4 Long term (current) use of insulin; Z79.82 Long term (current) use of aspirin; Z79.01 Long term (current) use of anticoagulants; I25.2 Old myocardial infarction; I25.10 Atherosclerotic heart disease of native coronary artery without angina pectoris; I10 Essential (primary) hypertension; Z51.81 Encounter for therapeutic drug level monitoring; E78.5 Hyperlipidemia, unspecified
CPT/HCPCS: 27130; 01214; 36415; 64450; 73501; 76000; 76942; 80048; 82962; 85027; 86850; 86900; 86901; 97110; 97116; 97161; 97166; 97530; 97535; 99100; A9270; C1776; J0690; J1100; J1171; J1200; J1815; J2250; J2371; J2405; J2704; J2710; J2795; J3010; J3490; J7120